=== PATIENT | male | born 1950 | race Caucasian/White ===

== ENCOUNTER 2022-05-10 05:35 | Day surgery (SDC) | payer MEDICARE, BC ==
--- NOTE | 2022-04-27 15:21 | NUR ---
ARJUN IS HERE FOR PRE ADMIT FOR RASHMI THAT WILL BE DONE 04/30/22. HE HAS A WALKER THAT HE WILL BRING ON THE DAY OF SURGERY. HE HAS 2 STEPS TO GET INTO HIS HOUSE BUT NO STEPS OR STAIRS IN HIS HOUSE. HE HAS A WALK IN SHOWER WITH A SEAT AND A HAND HELD SHOWER HEAD. HE REPORTS THAT HE INSTALLED TALLER TOILETS IN ALL BATHROOMS IN HIS HOUSE. HE IS TO CALL PHYSICAL THERAPY TO MAKE APPTS FOR POST OP CARE. HE LIVES IN [place] WITH HIS , SHE HAS HEALTH ISSUES AND ARJUN PERFERS THAT SHE NOT DRIVE. HIS SON IS PICKING HIM UP FROM THE HOSPITAL AND WILL BE AVAILABLE TO TAKE HIM TO POST OP APPT. HE STATES THAT HE SPOKE WITH DR FRIAS ABOUT HAVING HOME HEALTH "COME CHECK ON HIM" AFTER SURGERY.
[~2022-05-10] VITALS: Ht 185.4 cm; Wt 81.8 kg
--- NOTE | ~2022-05-10 | OR ---
[facility] [address] [place], [place] [address] Draft DATE OF OPERATION: 05/10/2022 SURGEON: Leland Callahan MD PREOPERATIVE DIAGNOSIS: Degenerative joint disease, right hip, severe. POSTOPERATIVE DIAGNOSIS: Degenerative joint disease, right hip, severe. PROCEDURE PERFORMED: Right total hip arthroplasty with Franck. [employer] INSTALLER: JUDD Thompson ANESTHESIA: Spinal. BLOOD LOSS: 200 mL. IMPLANTS: Orlando Accolade II size 6 stem, 56 mm cup and one screw and a -2.5 head. BRIEF HISTORY: Surendra is a 71-year-old gentleman with severe pain and disability in his right hip. He had undergone nonoperative treatment. During the workup for his surgery, the Franck CT revealed multiple lesions in his pelvis and subsequently in other areas. This was felt to be probably metastatic and perhaps prostate since his PSA was high. He was seen by the urologist multiple times and he refused to undergo biopsy since none of these lesions was in the region of the total hip, we elected to go ahead and proceed. He can work out the workup of this with the urologist. Risks, benefits, and alternatives were discussed at length and he understands and wishes to proceed. DESCRIPTION OF PROCEDURE: Once consent was obtained, he was taken to the operating room. After adequate anesthesia, he was placed in left lateral decubitus position on axillary roll. The hip was prepped and draped in a standard sterile fashion. The iliac crest was prepped into the field as well. The three Schanz pins for the Franck computer ray were placed in the PATIENT NAME: SURENDRA MORALES OPERATIVE REPORT DATE OF : 50 REPORT #: [id number] PHYSICIAN: LELAND CALLAHAN MD PCP: MAKENNA SMALLWOOD MD REPORT IS CONFIDENTIAL AND NOT TO BE RELEASED WITHOUT AUTHORIZATION [facility] [address] [place] [id number] Draft posterior half of the iliac crest. Approach to the hip was done through an anterior lateral modified approach. The skin incision was made, carried down to the IT band, which was split longitudinally. The vastus lateralis was then split from the tip of the trochanter distally along the anterior margin of the femur and subperiosteally elevated around the level of the lesser trochanter. The capsule was then split again along the anterior margin of the gluteus from the tip of the trochanter to the acetabular rim. This was then peeled off the anterior neck. There was extensive scarring and thickening of the capsule and multiple areas were released. We were unable to get the hip safely dislocated, so the femoral neck cut was made one fingerbreadth proximal to the lesser trochanter and the head was removed. The periacetabular soft tissue was removed. There was a large apparently cartilaginous mass in the acetabulum posteriorly, this was removed and sent off for pathology. There was a large cystic area in the superior femoral neck that was carefully were preserved and curetted and sent also for Pathology to make it was not a tumorous lesion. The acetabulum and leg were then registered with the computer and the robot was brought in and the acetabulum was reamed to 40 degrees of abduction and 20 degrees of anteversion. The cup was then impacted until it was well seated and one screw was placed posterior superiorly. The liner was then impacted until it was well seated. The anterior osteophytes were then removed. Attention was turned to proximal femur, which was opened using the jonelie cutter, followed by the Rajan awl. We then sequentially broached up to a 6, with the 6 found to be quite well fitting. It was left in position with a -2.5 head, initially reducing the hip secondary to large piece of anterior superior capsule. Once this was removed, we were able to reduce the hip and taken through range of motion, was found to be quite good. The hip was dislocated and the trials removed. The final stem was impacted until it was well-seated. The -2.5 was then impacted onto the clean trunnion. The hip was reduced with relative ease at that point. The hip was taken through range of motion and found to be good, leg lengths were found to be roughly equal. The wound was copiously irrigated throughout the procedure. A total of 3 L of normal saline under pulse lavage were used. Aricept soak was done in the middle. Periarticular soft tissues were injected with 100 mL ropivacaine and Toradol mixture. The capsule was closed using #1 Vicryl. The vastus and IT band layers were closed independently using #2 Stratafix. The subcutaneous tissue with 0-Quill and the skin with 3-0 Stratafix. The wound was sealed with LiquiBand and dressed with Acticoat 7 dressing. He was awakened and taken to the recovery room in satisfactory condition. All sponge, needle, and instrument counts were correct. Leland Callahan MD PATIENT NAME: SUREDNRA MORALES OPERATIVE REPORT DATE OF : 50 REPORT #: [id number] PHYSICIAN: LELAND CALLAHAN MD PCP: MAKENNA SMALLWOOD MD REPORT IS CONFIDENTIAL AND NOT TO BE RELEASED WITHOUT AUTHORIZATION [facility] [address] [place], [place] [address] Draft /MODL /[id number] Copies: ~ PATIENT NAME: ANDREWSURENDRAKayce MANNAM OPERATIVE REPORT DATE OF : 50 REPORT #: [id number] PHYSICIAN: LELAND CALLAHAN MD PCP: MAKENNA SMALLWOOD MD REPORT IS CONFIDENTIAL AND NOT TO BE RELEASED WITHOUT AUTHORIZATION
[~2022-05-10 05:35] MED LIST: FINASTERIDE5 MG PO; FLOMAX0.4 MG PO; LIPITOR80 MG GT; LISINOPRIL20 MG PO; METFORMIN HCL500 MG PO; NORVASC5 MG PO; TRULICITY0.75 MG/0.
[2022-05-10] MEDS ORDERED: XARELTO10 MG PO (08:52)
[2022-05-10] MEDS ORDERED: CELECOXIB200 MG PO (08:52)
[2022-05-10] MEDS ORDERED: SENNA LAX8.6 MG PO (08:53)
[2022-05-10] MEDS ORDERED: GABAPENTIN300 MG PO (08:53)
[2022-05-10] MEDS ORDERED: OXYCODONE HCL5 MG PO (08:53)
--- NOTE | 2022-05-10 09:06 | NUR ---
05/10/22 0906 Kait Montemayor 0850- PT ARRIVES TO PACU REACTIVE TO VOICE. PT NOT FOLLOWING COMMANDS AT THIS TIME. PT FALLS BACK TO SLEEP EASILY. RESP EVEN AND UNLABORED. OXYGEN SAT HIGH 90'S TO 100% ON 6L VIA MASK. PT'S SYSTOLIC BP IS IN THE 80'S. TIMBER FALLER AWARE. NO NEW ORDERS AT THIS TIME. 0854- CBG 142 TAKEN BY AMAIRANI MATUTE RN. 0859- XRAY AT THE BEDSIDE. 0900- PT'S SYSTOLIC BP DROPPED INTO THE 70'S. TIMBER FALLER NOTIFIED. PT'S BP CUFF ADJUSTED AND HEAD OF BED LOWERED. PT REPORTS NO DIZZINESS OR NAUSEA. BP RETAKEN. SYSTOLIC BP BACK IN THE 80'S. NO NEW ORDERS AT THIS TIME. 0905- PELVIS XRAY TAKEN.
--- NOTE | 2022-05-10 09:51 | NUR ---
PT BACK TO DS FROM PACU AWAKE AND ALERT DENIES PAIN AND NAUSEA. PT DECLINES WARM BLANKETS. PT LAYING FLAT DUE TO LOW BP AND ACTIVE SPINAL. SON AT BEDSIDE. CALL LIGHT WITHIN REACH
--- NOTE | 2022-05-10 09:58 | NUR ---
BLOOD SUGAR 165 AT 0955
--- NOTE | 2022-05-10 10:18 | NUR ---
SPINAL BELOW LEVEL OF KNEE. PT DENIES PAIN OR NAUSEA. PT AWAKE AND ALERT VISITING WITH SON. DARCY IN TACT.
--- NOTE | 2022-05-10 10:54 | NUR ---
BP IMPROVING, PT SITTING AT 45* IN BED REQUESTED CUP OF COFFEE TOLERATES COFFEEE WELL. PT ABLE TO MOVE FEET, SPINAL AT MID CALVE LEVEL.
--- NOTE | 2022-05-10 11:00 | NUR ---
PT DOES NOT EAT GRAINS, HE REQURESTED MEAT AND CHEESE TRAY FOR LUNCH. HE IS EATING LUNCH AND DRINKING WATER TOLERATES WELL.
--- NOTE | 2022-05-10 13:10 | NUR ---
PT AWAKE AND ALERT, SPINAL RESOLVED, PT DENIES PAIN, IV SALINE LOCKED PT, PT VISITING WITH SON.
--- NOTE | 2022-05-10 14:10 | NUR ---
PHYSICAL THERAPY HERE WORKING WITH PT, PT REPORTS 3/10 PAIN "AND GETTING WORSE", GABAPENTIN AND TRAMADOL GIVEN. PT UP TO BATHROOM WITH HELP FROM PHYSICAL THERAPIST.
--- NOTE | 2022-05-10 15:05 | NUR ---
PHYSICAL THERAPY TOOK PT TO BATHROOM BUT DID NOT MEASURE HOW MUCH PT VOIDED PT FELT LIKE HE DID NOT EMPTY BLADDER. BLADDER SCANNED PT SHOWED 346ML. PT DRINKING WATER AND WILL TRY TO VOID AGAIN LATER.
--- NOTE | 2022-05-10 16:14 | NUR ---
PT VOMITTED 1200ML OF GREEN FLUID. 4MG OF ZOFRAN GIVEN. PT REPORTS HE FEELS BETTER.
== END 2022-05-10 16:20 | disposition home or self-care (01) ==
LOC: DS 05:35
PROVIDERS: ATTEND Specialist
PROC: 0SR90JZ Replacement of Right Hip Joint with Synthetic Substitute, Open Approach (ICD-10-PCS; principal; 2022-05-10 06:45)
DX: M16.11 Unilateral primary osteoarthritis, right hip (principal); E11.9 Type 2 diabetes mellitus without complications; I10 Essential (primary) hypertension; Z87.891 Personal history of nicotine dependence; Z79.84 Long term (current) use of oral hypoglycemic drugs
CPT/HCPCS: 72170; C1713; C1776; J0131; J0690; J1885; J2001; J2250; J2405; J2704; J7121